=== PATIENT | male | born 1975 | race Caucasian/White ===

== ENCOUNTER 2020-05-22 15:19 | Emergency (ER) | payer OTHER ==
[2020-05-22 16:18] LABS: BASOPHIL 0.3 % (0-2); EOSINOPHIL 0.5 % (0-5); HCT 46.1 % (42.0-52.0); HGB 15.2 g/dl (13.2-18.0); LYMPHOCYTE 14.9 % (15-48); MCH 28.9 pg (25.0-31.0); MCV 87.6 fL (78.0-100.0); MONOCYTE 9.4 % (0-12); MPV 9.3 fL (6.0-9.5); NEUTROPHIL 74.7 % (41-80); NRBC 0; PLT 285 K/uL (150-400); RBC 5.26 M/uL (4.70-6.00); RDW 12.8 % (11.5-14.0); WBC 8.7 K/uL (4.0-10.5)
[2020-05-22 16:45] LABS: ALBUMIN 4.1 g/dL (3.4-5.0); BILIRUBIN - TOTAL 1.2 mg/dL (0.2-1.0); BUN/CREAT RATIO (CALC) 19.8 RATIO; CREATININE 0.96 mg/dL (0.67-1.17); GLOBULIN (CALCULATION) 4.7 g/dL; POTASSIUM 3.8 mmol/L (3.5-5.1); TOTAL PROTEIN 8.8 g/dL (6.4-8.2)
[2020-05-22 18:29] LABS: BILIRUBIN NEGATIVE (NEGATIVE); BLOOD NEGATIVE Ery/uL (NEGATIVE); CLARITY CLEAR (CLEAR); COLOR YELLOW (YELLOW); GLUCOSE (U) NORMAL (NORMAL); LEUKOCYTES NEGATIVE Leu/uL (NEGATIVE); NITRITE NEGATIVE (NEGATIVE); PROTEIN NEGATIVE (NEGATIVE); UROBILINOGEN 0.2 mg/dL (0.2-1.0)
== END 2020-05-22 20:02 | disposition home or self-care (01) ==
LOC: FER 15:19
PROVIDERS: Nurse Practitioner Family
DX: U07.1 COVID-19 (principal); R10.9 Unspecified abdominal pain
CPT/HCPCS: 36415; 71275; 80053; 81003; 85025; 85379; 94010; J1885; J7030; Q9967